=== PATIENT | female | born 1970 | race Caucasian/White ===

== ENCOUNTER 2016-11-17 23:11 | Emergency (ER) | payer SELFPAY ==
[~2016-11-17] VITALS: Ht 172.7 cm; Wt 88.9 kg
[~2016-11-17 23:11] MED LIST: ACHD5005 PO; AMIT50TA3 PO; ASP81CT PO; ASPI-266 PO; CIPR500T78 PO; CYCL10TA9 PO; DCS100C PO; GMFB600T PO; GUAI120L27 PO; HYDR-1231 PO; HYDR-2997 PO; HYDR-3454 PO; HYDR-3714 PO; HYDR-3730 PO; HYDR-3816 PO; HYDR-707 PO; HYDR-757 PO; HYDR1CAP2; HYDR1CAP2 PO; HYDR1TAB PO; IBP800T PO; LISI10TA2 PO; METH4TAB PO; MTF500T PO; MTR500T PO; NAPR-243 PO; NAPR-248; NAPR250T34 PO; NIAC1CAP PO; NITR-65 PO; OMG1KC PO; ONDAN4ODT SL; OXYC5CAP4 PO; PRAV10TA PO; PRAV20TA PO; PRED20TA PO; SIMV40TA2 PO; TRAM50TA2 PO
[2016-11-17] MEDS ORDERED: HYDROcodone/APAP 7.5 MG/325 MG (LORTAB, LORCET PLUS) TABLET PO STA (23:25)
[2016-11-17] MEDS ORDERED: SODI650T (23:37)
[2016-11-17] MEDS ORDERED: LEVO300T2 (23:37)
[2016-11-17] MEDS ORDERED: Calcium (23:37)
--- NOTE | 2016-11-17 23:50 | ED Lower Extremity ---
General Chief Complaint: Lower Extremity Stated Complaint: LEFT ANKLE PAIN,SWOLLEN Nursing Triage Note: pt ambulatory to ED reporting spontaneous pain in left ankle without injury. Noted pain and swelling Tuesday night and increased pain tonight. Nursing Sepsis Screen: No Definite Risk Source: patient Exam Limitations: no limitations History of Present Illness Time seen by provider: 23:25 Initial Comments Here with complaint of left foot pain started 2 days ago and has worsened to the point that she is unable to walk tonight. Unsure what initiated the pain. Complains of lateral foot pain and swelling. Denies injury to the foot. Does complain of pain to the sacrum/coccyx area after sitting down hard on a seat belt buckle. She does not wish for evaluation of this but didn't mention it. Onset: other (2 days ago) Severity: moderate Pain/Injury Location: left foot Method of Injury: unknown Modifying Factors: Improves With Immobilization, Worse With Movement Allergies and Home Medications Allergies Coded Allergies: NSAIDS (Non-Steroidal Anti-Inflamma (Unverified Allergy, Unknown, 08/11/14) hydromorphone (Unverified Allergy, Unknown, 06/16/14) ibuprofen (Unverified Allergy, Unknown, 06/16/14) sulfamethoxazole (Unverified Allergy, Unknown, 06/16/14) trimethoprim (Unverified Allergy, Unknown, 06/16/14) Home Medications Aspirin 81 Mg Tablet.dr, 81 MG PO DAILY, (Reported) Docusate Sodium 100 Mg Cap, 100 MG PO BID, #60 Prescribed by: JESSICA NEW on 11/28/14 1227 Levothyroxine Sodium 300 Mcg Tablet, (Reported) Lisinopril 10 Mg Tablet, 10 MG PO DAILY, (Reported) Metformin Hcl 500 Mg Tablet, 500 MG PO BID, (Reported) Niacin/Inositol Niacinate 1 Each Capsule, 500 MG PO HS, (Reported) [place] 3 Polyunsat Fatty Acids 1,000 Mg Cap, 2,000 MG PO BID, (Reported) TAKES 2 (1000MG) CAPSULES Pravastatin Sodium 20 Mg Tablet, 20 MG PO HS, (Reported) Sodium Bicarbonate 650 Mg Tablet, (Reported) [Calcium] , (Reported) Time Seen by Provider: 23:25 Constitutional: see HPI Respiratory: no symptoms reported Cardiovascular: no symptoms reported Gastrointestinal: no symptoms reported Musculoskeletal: see HPI, joint pain, joint swelling, muscle pain Skin: No change in color, No lesions, No rash Psychiatric/Neurological: No Symptoms Reported Past Evfpvri-Vxfhsh-Ycwepz Hx Patient Social History Alcohol Use: Denies Use Recreational Drug Use: No Smoking Status: Current Everyday Smoker Type Used: Cigarettes 2nd Hand Smoke Exposure: Yes Recent Foreign Travel: No Contact w/Someone Who Travel: No Recent Infectious Disease Expo: No Recent Hopitalizations: No Seasonal Allergies Seasonal Allergies: No Surgeries HX Surgeries: Yes (BILATERAL OVARIAN CYST REMOVAL, hernia, incisional hernia repaired 11/28/14) Surgeries: Gallbladder, Oophorectomy, Tubal Ligation Respiratory Hx Respiratory Disorders: No Cardiovascular Hx Cardiac Disorders: Yes Cardiac Disorders: High Cholesterol Neurological Hx Neurological Disorders: No Reproductive System Hx Reproductive Disorders: No Sexually Transmitted Disease: No HIV/AIDS: No Female Reproductive Disorders: Ovarian Cyst NEURO UROLOGIST History: Tubal Ligation Genitourinary Hx Genitourinary Disorders: Yes (STAGE 3 KIDNEY DISEASE) Genitourinary Disorders: Renal Failure Gastrointestinal Hx Gastrointestinal Disorders: Yes Gastrointestinal Disorders: Abdominal Hernia Musculoskeletal Hx Musculoskeletal Disorders: Yes Musculoskeletal Disorders: Chronic Back Pain Endocrine Hx Endocrine Disorders: Yes Endocrine Disorders: Diabetes, Non-Insulin dep HEENT HX ENT Disorders: No Loss of Vision: Denies Hearing Impairment: Denies Cancer Hx Cancer: No Psychosocial Hx Psychiatric Problems: No Integumentary HX Skin/Integumentary Disorder: No Blood Transfusions Hx Blood Disorders: No Adverse Reaction to a Blood Tr: No Reviewed Nursing Assessment Reviewed/Agree w Nursing PMH: Yes Family Medical History Significant Family History: Diabetes, Hypertension, Renal Disease Family Medial History: Arthritis Cardiovascular disease Cataracts Diabetes mellitus Hypercholesterolemia Hypertension Kidney disease Myocardial infarction Physical Exam Vital Signs Vital Sign - Last 12Hours 11/17/16 23:18 Temp 97.6 Pulse 109 Resp 20 B/P (MAP) 143/97 Pulse Ox 98 O2 Delivery Room Air Capillary Refill : Less Than 3 Seconds General Appearance: WD/WN, no apparent distress Cardiovascular: regular rate, rhythm, no murmur Respiratory: lungs clear, normal breath sounds Gastrointestinal: non tender, soft Ankles: right ankle non-tender, right ankle normal inspection, right ankle normal range of motion, left ankle pain, left ankle soft tissue tenderness, left ankle swelling Feet: right foot non-tender, right foot normal inspection, right foot normal range of motion, left foot pain (swelling noted from the lateral malleolus over lateral foot to dorsum), left foot soft tissue tenderness, left foot swelling, left foot other (tenderness greatest at the area of the left fifth metatarsal base and to the area of the base of the foot below the lateral malleolus) Neurologic/Tendon: normal sensation, normal motor functions, normal tendon functions Neurologic/Psychiatric: alert, oriented x 3 Skin: normal color, warm/dry Progress/Results/Core Measures Results/Orders My Orders Orders - PILI BRICENO MD Hydrocodone/Apap 7.5/325 Tab (Lortab 7. (11/17/16 23:25) Foot, Left, 3 Views (11/17/16 23:25) Crutches (11/18/16 00:14) Prednisone Tablet (Deltasone Tablet) (11/18/16 00:15) Medications Given in ED Current Medications Medications Dose Ordered Sig/Dilia Route Start Time Stop Time Status Last Admin Dose Admin Prednisone 40 mg ONCE ONCE PO 11/18/16 00:15 11/18/16 00:16 DC 11/18/16 00:20 40 MG Vital Signs/I&O Vital Sign - Last 12Hours 11/17/16 11/17/16 23:18 23:40 Temp 97.6 97.6 Pulse 109 Resp 20 B/P (MAP) 143/97 Pulse Ox 98 O2 Delivery Room Air Blood Pressure Mean: 112 Progress Note : Progress Note Seen and evaluated. X-ray left foot ordered. Monitor patient. No acute fracture. Prednisone 40 mg by mouth. Better after hydrocodone 7.5. Crutches given. Discharged home with return precautions. Patient verbalize understanding instructions and agreement with plan. Departure Impression Impression: Primary Impression: Arthritis of left foot Disposition: 01 HOME, SELF-CARE Condition: Improved Departure-Patient Inst. Decision time for Depature: 00:26 Referrals: HASEEB DEL CID DO (PCP) Primary Care Physician ADAN ZUIÑGA APRN (Family) Primary Care Physician Patient Instructions: Gout (DC), Osteoarthritis (DC) Add. Discharge Instructions: All discharge instructions reviewed with patient and/or family. Voiced understanding. Take medications as directed. Follow-up with your DrLuis Felipe in a few days for recheck. Return for worse pain, swelling, red streaks up the leg, weakness or other concerns as needed. Use crutches as needed. You may use ice packs to affected area as needed. Scripts Prednisone (Prednisone) 20 Mg Tab 40 MG PO DAILY, #8 TAB 0 Refills Prov: PILI BRICENO MD 11/18/16 Hydrocodone/Acetaminophen (Hydrocodon-Acetaminoph 7.5-325) 1 Each Tablet 1 EACH PO Q6H, #10 TAB 0 Refills Prov: PILI BRICENO MD 11/18/16 PILI BRIECNO MD Nov 17, 2016 23:50
[2016-11-18] MEDS ORDERED: predniSONE 20 MG TAB PO ONE (00:15)
[2016-11-18] MEDS ORDERED: HYDR-3816 PO (00:27)
[2016-11-18] MEDS ORDERED: PRD20T PO (00:27)
[2016-11-18 00:30] VITALS: BP 180/107
--- NOTE | 2016-11-18 07:33 | Diagnostic Imaging Report ---
INDICATION: Left foot pain 3 views of the left foot show no fracture, dislocation or other acute abnormalities. IMPRESSION: No acute abnormality seen in the foot Dictated by: Dictated on workstation # [id number]
== END 2016-11-18 00:30 | disposition home or self-care (01) ==
LOC: EDUNIT# 23:11 → ER 23:15
DX: M19.072 Primary osteoarthritis, left ankle and foot (principal); E11.22 Type 2 diabetes mellitus with diabetic chronic kidney disease; N18.3 Chronic kidney disease, stage 3 (moderate); F17.210 Nicotine dependence, cigarettes, uncomplicated; Z79.82 Long term (current) use of aspirin; Z79.84 Long term (current) use of oral hypoglycemic drugs
CPT/HCPCS: 73630; 99283